=== PATIENT | male | born 1980 | race Caucasian/White ===

== ENCOUNTER → 2021-07-08 | Outpatient (CLI) | payer OTHER ==
[~2021-07-08] MED LIST: AC500T; AC500T PO; ALPR0.5T72; AMOX500C2 PO; BUTA-234 PO; CYCL10TA9 PO; ESOM20SU; FAMO20TA5 PO; FERR250T PO; FNT50TD; HYDR-2890 PO; HYDR1TAB PO; KCL20TCR PO; MAGN400C PO; METO10TA3; MG T1TAB PO; MGX400T PO; MIDO5TAB; MORP15TA4; NEXIUM; NFPRILOC40; OMEP-10 PO; OMEP20CA12 PO; OMEP40CA36 PO; ONDA-42 PO; ONDAN4ODT PO; OXYC1TAB28 PO; OXYC5CAP10; PANT20TA2; PNT40TEC; PNT40TEC PO; PRM25T; PRM25T PO; PROLSEC; REGLAN; RNT150T PO; SCP1.5TD; SCR1T PO; SCR1T1 PO; SLOW-MAG64 M1 PO; TRAM50TA2 PO; TRM50T PO; WARF7.5T; [UNRECOGNIZED DRUG - REMARK]
== END ==
LOC: LAB 12:10
PROVIDERS: ATTEND Pediatrics
DX: E83.42 Hypomagnesemia (principal)
CPT/HCPCS: 36415; 83735

== ENCOUNTER 2021-12-07 15:52 | Observation (INO) | payer OTHER ==
[~2021-12-07] VITALS: Ht 193 cm; Wt 102.0 kg
[2021-12-07 16:28] LABS: BASOPHILS % (AUTO) 0 % (0-10); EOSINOPHILS % (AUTO) 0 % (0-10); HEMATOCRIT 45 % (40-54); HEMOGLOBIN 15.5 g/dL (13.3-17.7); LYMPHOCYTES # (AUTO) 1.4 10^3/uL (1.0-4.0); LYMPHOCYTES % (AUTO) 11 % (12-44); MEAN CORPUSCULAR HEMOGLOBIN 29 pg (25-34); MEAN CORPUSCULAR HGB CONC 34 g/dL (32-36); MEAN CORPUSCULAR VOLUME 84 fL (80-99); MEAN PLATELET VOLUME 10.9 fL (9.0-12.2); MONOCYTES % (AUTO) 8 % (0-12); NEUTROPHILS # (AUTO) 10.7 10^3/uL (1.8-7.8); NEUTROPHILS % (AUTO) 81 % (42-75); PLATELET COUNT 197 10^3/uL (130-400); WHITE BLOOD COUNT 13.2 10^3/uL (4.3-11.0)
[2021-12-07 16:40] LABS: CHLORIDE 99 MMOL/L (98-107); POTASSIUM 3.6 MMOL/L (3.6-5.0); SODIUM 134 MMOL/L (135-145)
[2021-12-07 16:41] LABS: CALCIUM 9.2 MG/DL (8.5-10.1)
[2021-12-07 16:42] LABS: GLUCOSE 129 MG/DL (70-105); TOTAL PROTEIN 7.4 GM/DL (6.4-8.2)
[2021-12-07 16:43] LABS: CARBON DIOXIDE 17 MMOL/L (21-32)
[2021-12-07 16:44] LABS: BILIRUBIN,TOTAL 0.5 MG/DL (0.1-1.0)
[2021-12-07 16:45] LABS: ALKALINE PHOSPHATASE 78 U/L (40-136); INR 1.1 (0.8-1.4); PROTHROMBIN TIME PATIENT 14.3 SEC (12.2-14.7)
[2021-12-07] MEDS ORDERED: LACTATED RINGERS 1,000 ML IV ONE (16:45)
[2021-12-07 16:46] LABS: CREATININE SERUM 1.91 MG/DL (0.60-1.30); GFR ESTIMATED 44
[2021-12-07 16:47] LABS: BUN/CREATININE RATIO 18
[2021-12-07 16:48] LABS: MAGNESIUM 1.2 MG/DL (1.6-2.4)
[2021-12-07 16:49] LABS: ALANINE AMINOTRANSFERASE 49 U/L (0-55)
[2021-12-07] MEDS ORDERED: MAGNESIUM 1 GM/100 ML IVPB 100 ML IV ONE (17:00)
[2021-12-07] MEDS ORDERED: NS IV 1000 ML 1,000 ML IV SCH (17:00)
--- NOTE | 2021-12-07 17:01 | ED General ---
General Chief Complaint: Dizziness/Syncope Stated Complaint: DIZZY/SYNCOPAL EPISODE Nursing Triage Note: PT TO ED W/ C/O DIZZINESS ET "PASSING OUT" ONSET THURSDAY THROUGH TODAY. PT VERY VAGUE W/ COMPLAINTS. REPORTS DID HAVE A "LITTLE BIT" OF DIARRHEA THURSDAY BUT DENIES ANY OTHER C/O AT THIS TIME. PT DENIES HITTING HEAD WHEN HE PASSES OUT. Source of Information: Patient, Old Records Exam Limitations: No Limitations History of Present Illness Date Seen by Provider: Dec 07, 2021 Time Seen by Provider: 16:22 Initial Comments This 41-year-old gentleman presents to the emergency room by private vehicle with complaints of generalized weakness, dizziness, and a lapse of time he describes as a "passing out" on December 03 and . He has also had some diarrhea that is dark in color. He has a history of significant hypomagnesemia for which she has required medical attention numerous times. He reports being off of his magnesium supplement for more than a week. He has had some subjective fevers but is afebrile at present. He denies cough, shortness of air, headache, change in taste or smell,. He does have some epigastric discomfort and upper abdominal pain that seems to alternate sides over the past few days. He denies any substance abuse of any kind. His primary care provider is Dr. Lowery at [facility]. He recently started cyclobenzaprine and trazodone for muscle spasms and insomnia. Allergies and Home Medications Allergies Coded Allergies: escitalopram (Verified Allergy, Mild, 03/24/13) meperidine (Verified Allergy, Mild, 03/24/13) Patient Home Medication List Home Medication List Reviewed: Yes Cyclobenzaprine Hcl (Cyclobenzaprine Hcl) 10 Mg Tablet, 1 EACH PO Q8HR PRN Prescribed by: CAROL CLAYTON on 05/01/13 1425 Magnesium Oxide (Mag Ox) 400 Mg Tab, 800 MG PO BIDPC Prescribed by: EMILY ZAMORA on 04/27/13 1507 Oxycodone Hcl/Acetaminophen (Oxycodone-Apap 10-650 Mg Tab) 1 Each Tablet, 1 EACH PO Q4H PRN, (Reported) Entered as Reported by: CIRILO PUENTES on 04/29/13 1651 Promethazine Hcl (Phenergan 25 Mg) 25 Mg Tablet, 1 TAB PO QID PRN Prescribed by: CAROL CLAYTON on 04/29/13 1507 Ranitidine Hcl (Zantac 150 Mg) 150 Mg Tablet, 1 TAB PO BID Prescribed by: EMILY ZAMORA on 04/27/13 1507 Tramadol Hcl (Ultram) 50 Mg Tab, 50-100 MG PO Q6H PRN, (Reported) Entered as Reported by: GEOVANNI SANTANA on 03/24/13 1550 Review of Systems Review of Systems Constitutional: see HPI EENTM: other (Dry mucous membranes) Respiratory: no symptoms reported Cardiovascular: see HPI Gastrointestinal: see HPI Genitourinary: no symptoms reported Musculoskeletal: no symptoms reported Skin: no symptoms reported Psychiatric/Neurological: See HPI Hematologic/Lymphatic: No Symptoms Reported Immunological/Allergic: no symptoms reported Past Qmekksl-Tjdgzx-Fksovh Hx Patient Social History Tobacco Use?: No Use of E-Cig and/or Vaping dev: No Substance use?: No Alcohol Use?: No Immunizations Up To Date Tetanus Booster (TDap): Less than 5yrs PED Vaccines UTD: No Past Medical History Surgery/Hospitalization HX: JANENE, ULCERS, MUSCLE SPASMS Surgeries: Yes Abdominal (Surgery for ulcers), Gallbladder Respiratory: Yes Pulmonary Embolism Cardiac: No Neurological: No Genitourinary: No Gastrointestinal: Yes Gastroesophageal Reflux, Liver Disease/Jaundice, Gastrointestinal Bleed, Pancreatitis, Esophagitis, Hiatal Hernia, Ulcer, Gall Bladder Disease Musculoskeletal: No Fractures Endocrine: No HEENT: No Cancer: No Psychosocial: Yes Bipolar Integumentary: No Psoriasis Family Medical History No Pertinent Family Hx Physical Exam Vital Signs Vital Signs - First Documented 12/07/21 16:06 Temp 36.6 Pulse 137 Resp 20 B/P (MAP) 110/77 (88) Pulse Ox 97 O2 Delivery Room Air Capillary Refill : Less Than 3 Seconds Height, Weight, BMI Height: '" Weight: 200lbs. 6.4oz. [id number]; 27.00 BMI Method:Stated General Appearance: No Apparent Distress, WD/WN, Other (Generally ill- appearing) HEENT: PERRL/EOMI, Normal ENT Inspection, Other (Oropharynx very dry) Neck: Normal Inspection Respiratory: Lungs Clear, Normal Breath Sounds, No Accessory Muscle Use Cardiovascular: No Edema, No Murmur, Tachycardia (Sinus) Gastrointestinal: Normal Bowel Sounds, Soft, Tenderness (Mild tenderness throughout the abdomen with more intense tenderness in the epigastric region) Extremity: Normal Inspection, No Pedal Edema Neurologic/Psychiatric: Alert, Normal Mood/Affect, Other (Somewhat of a disoriented historian. Fine tremor noted) Skin: Normal Color, Warm/Dry Progress/Results/Core Measures Suspected Sepsis SIRS Temperature: Pulse: 137 Respiratory Rate: 20 Laboratory Tests 12/07/21 16:20: White Blood Count 13.2H Blood Pressure 110 /77 Mean: 88 Laboratory Tests 12/07/21 16:20: Creatinine 1.91H, INR Comment 1.1, Platelet Count 197, Total Bilirubin 0.5 Results/Orders Lab Results Laboratory Tests Test 12/07/21 16:20 12/07/21 17:53 Range/Units White Blood Count 13.2 H 4.3-11.0 10^3/uL Red Blood Count 5.35 4.30-5.52 10^6/uL Hemoglobin 15.5 13.3-17.7 g/dL Hematocrit 45 40-54 % Mean Corpuscular Volume 84 80-99 fL Mean Corpuscular Hemoglobin 29 25-34 pg Mean Corpuscular Hemoglobin Concent 34 32-36 g/dL Red Cell Distribution Width 13.0 10.0-14.5 % Platelet Count 197 130-400 10^3/uL Mean Platelet Volume 10.9 9.0-12.2 fL Immature Granulocyte % (Auto) 1 % Neutrophils (%) (Auto) 81 H 42-75 % Lymphocytes (%) (Auto) 11 L 12-44 % Monocytes (%) (Auto) 8 0-12 % Eosinophils (%) (Auto) 0 0-10 % Basophils (%) (Auto) 0 0-10 % Neutrophils # (Auto) 10.7 H 1.8-7.8 10^3/uL Lymphocytes # (Auto) 1.4 1.0-4.0 10^3/uL Monocytes # (Auto) 1.0 0.0-1.0 10^3/uL Eosinophils # (Auto) 0.0 0.0-0.3 10^3/uL Basophils # (Auto) 0.0 0.0-0.1 10^3/uL Immature Granulocyte # (Auto) 0.1 0.0-0.1 10^3/uL Prothrombin Time 14.3 12.2-14.7 SEC INR Comment 1.1 0.8-1.4 Activated Partial Thromboplast Time 35 24-35 SEC Sodium Level 134 L 135-145 MMOL/L Potassium Level 3.6 3.6-5.0 MMOL/L Chloride Level 99 98-107 MMOL/L Carbon Dioxide Level 17 L 21-32 MMOL/L Anion Gap 18 H 5-14 MMOL/L Blood Urea Nitrogen 35 H 7-18 MG/DL Creatinine 1.91 H 0.60-1.30 MG/DL Estimat Glomerular Filtration Rate 44 BUN/Creatinine Ratio 18 Glucose Level 129 H 70-105 MG/DL Calcium Level 9.2 8.5-10.1 MG/DL Corrected Calcium 9.2 8.5-10.1 MG/DL Magnesium Level 1.2 L 1.6-2.4 MG/DL Total Bilirubin 0.5 0.1-1.0 MG/DL Aspartate Amino Transf (AST/SGOT) 48 H 5-34 U/L Alanine Aminotransferase (ALT/SGPT) 49 0-55 U/L Alkaline Phosphatase 78 40-136 U/L Total Creatine Kinase 1388 H 30-200 U/L Myoglobin 272.8 H 10.0-92.0 NG/ML Troponin I < 0.028 <0.028 NG/ML C-Reactive Protein High Sensitivity 2.21 H 0.00-0.50 MG/DL Total Protein 7.4 6.4-8.2 GM/DL Albumin 4.0 3.2-4.5 GM/DL Lipase 25 8-78 U/L Serum Alcohol < 10 <10 MG/DL Influenza Type A (RT-PCR) Not Detected Not Detecte Influenza Type B (RT-PCR) Not Detected Not Detecte SARS-CoV-2 RNA (RT-PCR) Not Detected Not Detecte My Orders Orders - ERNESTO FUNES MD Cbc With Automated Diff (12/07/21 16:22) Magnesium (12/07/21 16:22) Chest 1 View, Ap/Pa Only (12/07/21 16:22) Ekg Tracing (12/07/21 16:22) Comprehensive Metabolic Panel (12/07/21 16:22) Myoglobin Serum (12/07/21 16:22) Protime With Inr (12/07/21 16:22) Partial Thromboplastin Time (12/07/21 16:22) O2 (12/07/21 16:22) Monitor-Rhythm Ecg Trace Only (12/07/21 16:22) Ed Iv/Invasive Line Start (12/07/21 16:22) Troponin I [place] (12/07/21 16:20) Lactated Ringers (Lr 1000 Ml Iv Solution (12/07/21 16:45) Alcohol (12/07/21 16:39) Hs C Reactive Protein (12/07/21 16:53) Magnesium 1 Gm/100 Ml Ivpb (Magnesium [place] (12/07/21 17:00) Ns Iv 1000 Ml (Sodium Chloride 0.9%) (12/07/21 17:00) Creatine Kinase (12/07/21 17:01) Covid 19 Inhouse Test (12/07/21 17:53) Influenza A And B By Pcr (12/07/21 17:53) Ct Abdomen/Pelvis Wo (12/07/21 17:53) Lipase (12/07/21 17:58) Ed Admission (Communication) (12/07/21 18:34) Medications Given in ED Vital Signs/I&O 12/07/21 16:06 Temp 36.6 Pulse 137 Resp 20 B/P (MAP) 110/77 (88) Pulse Ox 97 O2 Delivery Room Air Capillary Refill : Less Than 3 Seconds Blood Pressure Mean: 88 Progress Note #1: Time: 17:00 Progress Note Patient was found to be tachycardic with very dry mucous membranes. He is receiving IV hydration starting with a liter of LR. This will be followed by a normal saline bolus and 1 g of magnesium as his magnesium has been found to be low again. Is also noted to have acute kidney injury. Progress Note #2: Time: 17:56 Progress Note Patient has rhabdomyolysis with elevated CK and myoglobin levels. He is receiving a second liter of IV fluids now. He does feel little bit better after hydration but states that his muscles are more achy. He initially declined influenza and Covid swabbing, particularly the Covid swabbing, because he is concerned his employer will keep him from working even if he has a negative test. After informing him that I believed admission appropriate given his acute kidney injury and rhabdomyolysis, he then consented to Covid and influenza testing. I inquired further about his abdominal pain. Although he has chronic abdominal problems with intermittent pain, he believes his present pain is out of the ordinary and deserves further attention. CT scan has been ordered. Patient has been unable to urinate thus far. Lipase is also still pending. ECG Initial ECG Impression Date: Dec 07, 2021 Initial ECG Impression Time: 16:38 Initial ECG Rate: 130 Initial ECG Rhythm: S.Tach Comment Sinus tachycardia with no ST elevation or depression. No abnormal intervals or axis deviation. Diagnostic Imaging Diagonstic Imaging: Xray Plain Films/CT/US/NM/MRI: chest Comments Chest x-ray viewed by me and report reviewed. See report below: NAME: [facility] REC#: [id number] PT STATUS: REG ER : 1980 PHYSICIAN: ERNESTO FUNES MD ADMIT DATE: 12/07/21/ER Draft Date of Exam:12/07/21 CHEST 1 VIEW, AP/PA ONLY INDICATION: Dizziness. COMPARISON: 04/25/2013. EXAMINATION: Single view of the chest. FINDINGS: Clear lungs, bilaterally. The heart is normal. There is no pneumothorax. Osseous structures are normal. IMPRESSION: Negative chest. Dictated on workstation # [id number] Dict: 12/07/21 1705 Trans: 12/07/21 1708 [facility] [id number] Interpreted by: YISSEL COLVIN Diagonstic Imaging: CT Plain Films/CT/US/NM/MRI: abdomen, pelvis Comments CT abdomen pelvis viewed by me and report reviewed. See report below: NAME: [facility] REC#: [id number] PT STATUS: REG ER : 1980 PHYSICIAN: ERNESTO FUNES MD ADMIT DATE: 12/07/21/ER Draft Date of Exam:12/07/21 CT ABDOMEN/PELVIS WO PROCEDURE: CT abdomen and pelvis without contrast. TECHNIQUE: Multiple contiguous axial images were obtained through the abdomen and pelvis without the use of intravenous contrast. Auto Exposure Controls were utilized during the CT exam to meet ALARA standards for radiation dose reduction. INDICATION: Mid abdominal pain, diarrhea. COMPARISON: 05/26/2013. FINDINGS: The lung bases are clear. There is chronic atrophy and degeneration of the left kidney. The right kidney is unremarkable. Additional solid organs are intact. Gallbladder is surgically absent. The course and caliber of the large and small bowel are normal. There is no free air, free fluid or inflammatory change. Prostate and urinary bladder are normal. There are a few diverticula of the sigmoid colon without diverticulitis. IMPRESSION: 1. Negative CT abdomen and pelvis. No bowel obstruction, free air, free fluid or inflammatory process. 2. Not mentioned above, hiatal hernia. Dictated on workstation # [id number] Dict: 12/07/21 1819 Trans: 12/07/21 1823 [facility] [id number] Interpreted by: YISSEL COLVIN Departure Communication (Admissions) Time/Spoke to Admitting Phy: 18:28 Dr. Light Impression Primary Impression: Acute kidney injury Additional Impressions: Rhabdomyolysis Qualified Codes: M62.82 - Rhabdomyolysis Hypomagnesemia Diarrhea Qualified Codes: R19.7 - Diarrhea, unspecified Disposition: ADMITTED INPATIENT Condition: Improved Admissions Decision to Admit Reason: Admit from ER (General) Decision to Admit/Date: Dec 07, 2021 Time/Decision to Admit Time: 18:28 Departure-Patient Inst. Referrals: RADHA LOWERY DO (PCP/Family) Primary Care Physician ERNESTO FUNES MD Dec 07, 2021 17:01
--- NOTE | 2021-12-07 17:09 | Diagnostic Imaging Report ---
INDICATION: Dizziness. COMPARISON: 04/25/2013. EXAMINATION: Single view of the chest. FINDINGS: Clear lungs, bilaterally. The heart is normal. There is no pneumothorax. Osseous structures are normal. IMPRESSION: Negative chest. Dictated by: Dictated on workstation # [id number]
--- NOTE | 2021-12-07 18:23 | Diagnostic Imaging Report ---
PROCEDURE: CT abdomen and pelvis without contrast. TECHNIQUE: Multiple contiguous axial images were obtained through the abdomen and pelvis without the use of intravenous contrast. Auto Exposure Controls were utilized during the CT exam to meet ALARA standards for radiation dose reduction. INDICATION: Mid abdominal pain, diarrhea. COMPARISON: 05/26/2013. FINDINGS: The lung bases are clear. There is chronic atrophy and degeneration of the left kidney. The right kidney is unremarkable. Additional solid organs are intact. Gallbladder is surgically absent. The course and caliber of the large and small bowel are normal. There is no free air, free fluid or inflammatory change. Prostate and urinary bladder are normal. There are a few diverticula of the sigmoid colon without diverticulitis. IMPRESSION: 1. Negative CT abdomen and pelvis. No bowel obstruction, free air, free fluid or inflammatory process. 2. Not mentioned above, hiatal hernia. Dictated by: Dictated on workstation # [id number]
[2021-12-07 20:00] VITALS: BP 113/71
[2021-12-07] MEDS ORDERED: MELATONIN 3 MG TABLET PO PRN (20:15)
[2021-12-07] MEDS ORDERED: ONDANSETRON 4 MG (ZOFRAN) ORAL DISSOLVE TAB PO PRN (20:15)
[2021-12-07] MEDS ORDERED: LACTULOSE SYRUP 10GM/15ML (ENULOSE) 30ML UDC PO PRN (20:15)
[2021-12-07] MEDS ORDERED: morphine INJ 4 MG/ML 1 ML (VIAL/SYRINGE) IV PRN (20:15)
[2021-12-07] MEDS ORDERED: diphenhydrAMINE 25 MG TAB (BENADRYL) PO PRN (20:15)
[2021-12-07] MEDS ORDERED: ANTACID SUSP 30 ML UDC (MYLANTA) PO PRN (20:15)
[2021-12-07] MEDS ORDERED: MILK OF MAGNESIA 400 MG/5 ML 30 ML UDC PO PRN (20:15)
[2021-12-07] MEDS ORDERED: ACETAMINOPHEN 325 MG TABLET PO PRN (20:15)
[2021-12-07] MEDS ORDERED: polyethylene glycoL POWDER 17 GM (MIRALAX) PACK PO PRN (20:15)
[2021-12-07] MEDS ORDERED: ALPRAZolam 0.25 MG (XANAX) TAB PO PRN (20:15)
[2021-12-07] MEDS ORDERED: CALCIUM CARBONATE 500 MG (TUMS) TAB.CHEW PO PRN (20:15)
[2021-12-07] MEDS ORDERED: ENOXAPARIN 40 MG/0.4 ML (LOVENOX) SYR SC SCH (20:15)
[2021-12-07] MEDS ORDERED: ONDANSETRON 4 MG/2 ML (SDV) Z0FRAN IV PRN (20:15)
[2021-12-07] MEDS ORDERED: BISACODYL 10 MG SUPP (DULCOLAX) PR PRN (20:15)
[2021-12-07] MEDS ORDERED: diphenhydrAMINE 50 MG/ML INJ (BENADRYL) IVP PRN (20:15)
[2021-12-07] MEDS ORDERED: NS IV 1000 ML 1,000 ML ONE (20:30)
[2021-12-07] MEDS: NS IV 1000 ML 1,000 ML IV SCH ×3 (20:45→22:47)
[2021-12-07] MEDS: SENNOSIDES 8.6 MG (SENOKOT) TAB PO SCH (20:49)
[2021-12-07] MEDS: DOCUSATE SODIUM 100 MG (COLACE) CAP PO SCH (20:49)
[2021-12-07 22:51] VITALS: BP 113/71
[2021-12-07 23:00] VITALS: BP 112/73
[2021-12-07] MEDS ORDERED: RT-ALBUTEROL/IPRATROPIUM 3 ML (DUONEB) VIAL INH PRN (23:15)
[2021-12-08 03:56] VITALS: BP 99/67
[2021-12-08] MEDS: NS IV 1000 ML 1,000 ML IV SCH ×2 (04:33→09:18)
--- NOTE | 2021-12-08 07:37 | Short Stay Summary-Hospitalist ---
History of Present Illness HPI/Chief Complaint Patient not seen before leaving AMA Source: patient Exam Limitations: no limitations Date Seen 12/08/21 Time Seen by a Provider: 00:00 Attending Physician Shanice Light DO PCP Elio López DO Referring Physician Date of Admission Dec 07, 2021 at 18:35 Home Medications & Allergies Home Medications Reviewed patient Home Medication Reconciliation performed by pharmacy medication reconciliations facility maintenance technician and/or nursing. Patients Allergies have been reviewed. Allergies Allergies Coded Allergies escitalopram (Verified Allergy, Mild, 03/24/13) meperidine (Verified Allergy, Mild, 03/24/13) Past Jxcjfod-Okwfpa-Onihoj Hx Patient Social History Tobacco Use?: No Use of E-Cig and/or Vaping dev: No Substance use?: No Alcohol Use?: No Pt feels they are or have been: No Immunizations Up To Date PED Vaccines UTD: No Date of Pneumonia Vaccine: Mar 27, 2013 Current Status Advance Directives: No Communicates: Verbally Primary Language: Portuguese Preferred Spoken Language: Portuguese Is interpretation needed?: No Implanted or Applied Medical D: None Past Medical History Surgeries: Abdominal (Surgery for ulcers), Gallbladder Pulmonary Embolism Gastroesophageal Reflux, Liver Disease/Jaundice, Gastrointestinal Bleed, Pancreatitis, Esophagitis, Hiatal Hernia, Ulcer, Gall Bladder Disease Fractures Bipolar Psoriasis Family Medical History No Pertinent Family Hx Review of Systems ROS-Unable to Obtain: Patient not seen before leaving AMA Constitutional: see HPI Physical Exam Physical Exam Vital Signs Vital Signs - First Documented 12/07/21 12/07/21 16:06 22:51 Temp 36.6 Pulse 137 Resp 20 B/P (MAP) 110/77 (88) Pulse Ox 97 O2 Delivery Room Air FiO2 21 Capillary Refill : Less Than 3 Seconds Height, Weight, BMI Height: '" Weight: 200lbs. 6.4oz. 90.877434xs; 27.38 BMI Method:Stated General Appearance: No Apparent Distress, WD/WN, Other (Generally ill- appearing) HEENT: PERRL/EOMI, Normal ENT Inspection, Other (Oropharynx very dry) Neck: Normal Inspection Respiratory: Lungs Clear, Normal Breath Sounds, No Accessory Muscle Use Cardiovascular: No Edema, No Murmur, Tachycardia (Sinus) Gastrointestinal: Normal Bowel Sounds, Soft, Tenderness (Mild tenderness t hroughout the abdomen with more intense tenderness in the epigastric region) Extremity: Normal Inspection, No Pedal Edema Neurologic/Psychiatric: Alert, Normal Mood/Affect, Other (Somewhat of a disoriented historian. Fine tremor noted) Skin: Normal Color, Warm/Dry Results Results/Procedures Labs Laboratory Tests 12/07/21 16:20 Patient resulted labs reviewed. Short Stay Diagnosis Discharge Diagnosis-Short Stay Admission Diagnosis Patient not seen before leaving AMA Final Discharge Diagnosis Patient not seen before leaving AMA Conclusion Plan Patient not seen before leaving AMA SHANICE LIGHT DO Dec 08, 2021 07:37
[2021-12-08 08:20] VITALS: BP 102/58
[2021-12-08] MEDS: SENNOSIDES 8.6 MG (SENOKOT) TAB PO SCH (09:18)
[2021-12-08] MEDS: DOCUSATE SODIUM 100 MG (COLACE) CAP PO SCH (09:18)
== END 2021-12-08 11:20 | disposition left against medical advice (07) ==
LOC: EDUNIT# 15:52 → ER 15:56 → 4TH 18:35
PROVIDERS: ADMIT Internal Medicine; ATTEND Internal Medicine
DX: N17.9 Acute kidney failure, unspecified (principal); R42 Dizziness and giddiness; M62.82 Rhabdomyolysis; R19.7 Diarrhea, unspecified; E83.42 Hypomagnesemia
CPT/HCPCS: 36415; 71045; 74176; 80053; 80320; 82550; 83690; 83735; 83874; 84484; 85025; 85610; 85730; 86141; 87636; 93005; 96360; 96361; 96372; G0378

== ENCOUNTER → 2022-04-17 | Outpatient (CLI) | payer OTHER ==
--- NOTE | 2022-04-17 13:24 | Diagnostic Imaging Report ---
US RENAL ART DOPPLER WALKER COMP Technique: Multi-projectional grayscale, color Doppler and spectral duplex imaging of the bilateral kidneys and renal vasculature was performed. Indication: Chronic kidney disease. Left kidney atrophy. Comparison: CT abdomen and pelvis of 12/07/2021 FINDINGS: Right side: Right kidney is normal in size measuring 12 cm. There is no hydronephrosis or suspicious mass lesion. The following measurements were made for the right renal vasculature and/or as follows: Main renal artery: Color Doppler imaging shows patency of the mid and distal main renal artery. The proximal renal arteries obscured by overlying bowel gas. The visualized portion main renal artery have normal low resistant waveforms and no elevated peak systolic velocities. Interlobular/arcuate arteries: Arcuate arteries are patent with normal low resistive waveforms and acceleration indices. PSV:Aorta : 1.9 Left side: Left kidney is not visualized and is severely atrophic as seen on prior CT. Left renal facets which was not able to be evaluated. Urinary bladder is normally filled without wall thickening. Prevoid bladder volume is 151 mL. Post void bladder volume is 41 mL. IMPRESSION: 1. No right renal artery stenosis. 2. Severe and near complete atrophy of the left kidney as seen on prior CT. The left kidney and its associated vasculature cannot be seen on this exam. Abnormal Parameters: PSV > 200 cm/s PSV:Aorta > 3.5 Acceleration Index < 300 cm/sec2 Acceleration time > 70 msec Dictated by: Dictated on workstation # [id number]
== END ==
LOC: RAD 08:18
PROVIDERS: ATTEND Internal Medicine Nephrology
DX: N18.2 Chronic kidney disease, stage 2 (mild) (principal); N26.1 Atrophy of kidney (terminal); E83.9 Disorder of mineral metabolism, unspecified; E83.42 Hypomagnesemia
CPT/HCPCS: 76770; 93975